=== PATIENT | female | born 1985 | race African-American/Black ===

== ENCOUNTER 2018-05-26 12:00 | Observation (INO) | payer OTHER ==
[~2018-05-26] VITALS: Ht 170.2 cm; Wt 106.6 kg
[2018-05-26] MEDS ORDERED: PREN-96 PO (12:38)
== END 2018-05-26 13:35 | disposition home or self-care (01) | DRG 833 ==
LOC: LDRP 12:00
PROVIDERS: ADMIT Obstetrics & Gynecology; ATTEND Obstetrics & Gynecology
DX: O36.8130 Decreased fetal movements, third trimester, not applicable or unspecified (principal); Z3A.34 34 weeks gestation of pregnancy
CPT/HCPCS: 59025; 76818; 81002; G0378